=== PATIENT | female | born 1985 | race Caucasian/White ===

== ENCOUNTER → 2016-12-07 | Outpatient (CLI) | payer OTHER ==
--- NOTE | 2016-12-07 16:03 | REP ---
MRI BRAIN WITHOUT AND WITH CONTRAST: HISTORY: Right ear pain. CONTRAST: ProHance 12 mL. Scattered punctate areas of increased signal intensity on T2 weighted images are present in the subcortical white matter. There is no intraparenchymal hemorrhage, infarct, mass, or midline shift. There is no abnormal enhancement. The ventricular system is normal in appearance. There is no extra cerebral collection. There is no cerebellopontine angle mass. The inner structures are normal in appearance. Minimal mucosal thickening is present in the right mastoid air cells. The visualized sinuses are clear. IMPRESSION: There are scattered punctate area of increased signal intensity in the subcortical white matter. This is a nonspecific finding and can be condition such as migraine, collagen vascular disease, Lyme disease, vasculitis, sarcoid, B12 deficiency and atypical demyelinating disease. Signed by Dexter Gardner MD 12/07/2016 04:07 P
== END ==
LOC: M RAD 13:57
PROVIDERS: ATTEND Nurse Practitioner Family
DX: G51.0 Bell's palsy (principal)

== ENCOUNTER → 2017-02-04 | Outpatient (REF) | payer OTHER ==
[2017-02-04 14:24] LABS: FOLATE > 24.0 NG/ML (>5.4); VITAMIN B12 LEVEL 424 PG/ML (247-911)
[2017-02-04 14:25] LABS: ALBUMIN 4.4 GM/DL (3.2-5.2); ALBUMIN/GLOBULIN RATIO 1.29 (1.00-1.93); ALKALINE PHOSPHATASE 77 U/L (45-117); ALT/SGPT 16 U/L (12-78); ANION GAP 7 MEQ/L (8-16); AST/SGOT 11 U/L (15-37); BILIRUBIN,TOTAL 0.6 MG/DL (0.2-1.0); BLOOD UREA NITROGEN 12 MG/DL (7-18); CALCIUM LEVEL 9.3 MG/DL (8.5-10.1); CARBON DIOXIDE LEVEL 27 MEQ/L (21-32); CHLORIDE LEVEL 105 MEQ/L (98-107); CREATININE FOR GFR 0.65 MG/DL (0.55-1.02); GLOMERULAR FILTRATION RATE > 60.0 (>60); GLUCOSE, FASTING 78 MG/DL (70-105); POTASSIUM SERUM 4.2 MEQ/L (3.5-5.1); SODIUM LEVEL 139 MEQ/L (136-145); TOTAL PROTEIN 7.8 GM/DL (6.4-8.2)
[2017-02-04 14:44] LABS: BASO % 0.4 % (0.0-1.0); EOS # 0.2 K/mm3 (0.0-0.50); LARGE UNSTAINED CELL # 0.1 K/mm3 (0.0-0.4); LARGE UNSTAINED CELL % 1.8 % (0.0-4.0); LYMPH # 2.4 K/mm3 (1.5-4.5); LYMPH % 30.2 % (24.0-44.0); MEAN CORPUSCULAR HEMOGLOBIN 27.9 pg (27.0-33.0); MEAN CORPUSCULAR HGB CONC 32.1 g/dl (32.0-36.5); MEAN CORPUSCULAR VOLUME 87.1 fl (80.0-96.0); MONO # 0.5 K/mm3 (0.0-0.8); MONO % 6.3 % (0.0-5.0); NEUTROPHILS # 4.4 K/mm3 (1.8-7.7); NEUTROPHILS % 59.2 % (36.0-66.0); PLATELET COUNT, AUTOMATED 281 k/mm3 (150-450); RED CELL DISTRIBUTION WIDTH 12.9 % (11.5-14.5); WHITE BLOOD COUNT 7.5 K/mm3 (4.0-10.0)
[2017-02-04 15:34] LABS: ERYTHROCYTE SEDIMENTATION RATE 4 mm/hr (0-20)
[2017-02-07 14:13] LABS: VITAMIN E LEVEL 11.9 mg/L (5.3-16.8)
[2017-02-09 00:06] LABS: Lyme Disease IgG/IgM Antibodie <0.91 ISR (0.00-0.90); Lyme Disease IgM Ab Quantitati <0.80 index (0.00-0.79)
== END ==
LOC: M LABNEURO 10:20
PROVIDERS: ATTEND Psychiatry & Neurology Neurology
DX: G51.0 Bell's palsy (principal); Z11.8 Encounter for screening for other infectious and parasitic diseases; Z13.29 Encounter for screening for other suspected endocrine disorder

== ENCOUNTER → 2017-02-17 | Outpatient (CLI) | payer OTHER ==
--- NOTE | 2017-02-17 13:34 | REP ---
ULTRASOUND LEFT BREAST: CLINICAL HISTORY: Palpable abnormality left breast 3 o'clock and retroareolar region. Ultrasound of these regions of the left breast demonstrate dense fibroglandular tissue. No discrete cystic or solid nodule is seen. IMPRESSION: ACR 2 benign ultrasound left breast. No cystic or solid mass at the site of the reported palpable abnormalities left breast 3 o'clock in retroareolar region. Clinical correlation and followup recommended. A negative ultrasound should not deter biopsy if there is a clinically suspicious palpable mass present. Signed by Camilo Elizalde MD 02/18/2017 04:43 P
== END ==
LOC: M RAD 11:43
PROVIDERS: ATTEND Family Medicine
DX: N63 Unspecified lump in breast (principal)

== ENCOUNTER → 2017-09-27 | Outpatient (CLI) | payer OTHER ==
--- NOTE | 2017-09-27 13:19 | REP ---
Left breast ultrasound: 09/27/2017. Clinical history: 31-year-old female with lateral left breast pain. Comparison: Diagnostic digital left mammogram 09/27/2017. Findings. Sonographic evaluation of the outer half of the left breast from the noon position down to 6 o'clock where she reports pain in the outer half of that breast. There is dense echogenic heterogeneous breast tissue without discrete mass, cyst, dilated duct or architectural distortion. No skin thickening or edema suggested on any of these images. Impression: 1. BIRADS ACR category 1 negative left breast ultrasound. No evidence of malignancy. 2. Heterogeneous dense echogenic tissue without discrete mass, cyst, architectural distortion or other acute finding. Please see mammogram report this date for final assessment and recommendation. Signed by Andres Kerns MD 09/28/2017 07:21 P
--- NOTE | 2017-09-27 13:32 | REP ---
Diagnostic digital left mammogram: 09/27/2017. Comparison: Left breast ultrasound 09/27/2017. Clinical history: The patient reports breast pain lateral aspect left breast. Findings: The breast parenchyma show heterogeneously dense fibroglandular elements throughout in a fairly symmetric pattern. Standard two-view mammography and a true MLO view were performed. Scattered lymph nodes are seen in the axilla. There are no dominant masses, areas of architectural distortion, skin thickening, clustered microcalcification or other acute abnormality. Right breast ultrasound identified no sonographically definable cyst, solid mass, architectural distortion or other acute finding. No skin thickening. Impression: 1. BI-RADS/ACR category 2 mammogram. Benign finding(s). Routine annual screening mammography (for women over age 40). No evidence of malignancy. A few benign fat replaced axillary nodes are seen but no discrete mammographic or sonographic abnormality in the outer half of the left breast where she reports some breast pain. 2. Recommend followup bilateral mammogram at age 40 or sooner if clinically warranted. This negative report should not deter further evaluation of a dominant or suspicious physical finding. This mammogram was interpreted with the aid of an FDA-approved computer-aided detection system. A. Negative x-ray reports should not delay biopsy if a dominant or clinically suspicious mass is present. B. Four to eight percent of cancers are not identified by x-ray. C. Adenosis and dense breasts may obscure an underlying neoplasm. The patient states she had a clinical breast exam in 08/2017. The patient letter being requested is M1 dense. Signed by Andres Kerns MD 09/28/2017 07:46 P
== END ==
LOC: M RAD 09:58
PROVIDERS: ATTEND Family Medicine
DX: Z12.31 Encounter for screening mammogram for malignant neoplasm of breast (principal)

== ENCOUNTER → 2018-05-26 | Outpatient (REF) | payer OTHER ==
[2018-05-26 22:13] LABS: CHLAMYDIA DNA AMPLIFICATION NEGATIVE (NEGATIVE); GC DNA AMPLIFICATION NEGATIVE (NEGATIVE)
== END ==
LOC: M SFHCLERA 14:04
DX: R30.0 Dysuria (principal)
CPT/HCPCS: 87086

== ENCOUNTER → 2018-05-26 | Outpatient (CLI) | payer OTHER | LOC: M LRY 15:05 | DX: R30.0 Dysuria (principal) | CPT/HCPCS: 74021; 87086 ==

== ENCOUNTER → 2018-10-31 | Outpatient (CLI) | payer OTHER ==
--- NOTE | 2018-10-31 14:36 | REP ---
Digital diagnostic bilateral mammography with CAD, 3D mammography, and focused right breast sonography: HISTORY: Preop for reduction. Right breast mass times 2 months. Comparison mammography September 27, 2017, unilateral left breast study. MAMMOGRAPHIC FINDINGS: A skin marker is affixed to the skin at the site of the palpable abnormality. Routine views of the right breast are augmented by magnified focal spot compression CC, MLO and true ML views. Fairly dense heterogeneous breast tissue is seen in a pattern which may inhibit the sensitivity of mammography. No dominant density or asymmetry is seen at the site of the palpable lump in the right breast. No mass, spiculation or microcalcification is seen on either side. No suspicious mammographic abnormality. There has been some involution in the left breast. SONOGRAPHIC FINDINGS: The right breast is scanned in the upper outer quadrant 9-o'clock position to 12-o'clock position. Heterogeneous fibroglandular background echotexture is seen. No cyst, mass, acoustic shadowing or architectural distortion is visible. IMPRESSION: BI-RADS/ACR category 1 mammogram. Negative. Routine annual screening mammography (for women over age 40). BIRADS category 1 negative bilateral breast imaging findings. This negative report should not dissuade one from biopsy of a palpable lump depending on its clinical characteristics. Clinical follow-up is advised. This mammogram was interpreted with the aid of an FDA-approved computer-aided detection system. The patient states that she/he has not had a clinical breast exam in over a year. This patient's estimated Tyrer-Cuzick lifetime risk assessment for the breast cancer is 14.0 %. Patient letter M 1 Electronically Signed by Lakhwinder Garcia MD 10/31/2018 07:29 P
== END ==
LOC: M RAD 11:16
PROVIDERS: ATTEND Family Medicine
DX: N62 Hypertrophy of breast (principal)

== ENCOUNTER → 2019-10-28 | Outpatient (REF) | payer OTHER | LOC: M SFHCLERA 13:34 | PROVIDERS: ATTEND Physician Assistant | DX: R50.9 Fever, unspecified (principal) ==

== ENCOUNTER → 2019-11-07 | Outpatient (CLI) | payer OTHER ==
--- NOTE | 2019-11-07 13:05 | REP ---
Chest x-ray: Two views. History: Cough recent flu diagnosis. . Comparison study: May 26, 2018 . Findings: The lungs are well inflated and free of infiltrate. The pleural angles are sharp. The heart size is normal. Pulmonary vasculature is not increased. No significant bony abnormality is seen. Impression: Negative chest x-ray. Electronically Signed by Lakhwinder Garcia MD 11/07/2019 12:56 P
== END ==
LOC: M LRY 12:43
PROVIDERS: ATTEND Nurse Practitioner Family
DX: R09.89 Other specified symptoms and signs involving the circulatory and respiratory systems (principal)
CPT/HCPCS: 71046; G0463

== ENCOUNTER → 2020-04-22 | Outpatient (REF) | payer OTHER | LOC: M SFHCLERA 11:20 | PROVIDERS: ATTEND Nurse Practitioner Family | DX: R10.30 Lower abdominal pain, unspecified (principal) | CPT/HCPCS: 81002; 81025; 87086; G0463 ==

== ENCOUNTER → 2020-05-02 | Outpatient (CLI) | payer OTHER ==
--- NOTE | 2020-05-02 14:13 | REP ---
BILATERAL MAMMOGRAM WITH 3D TOMOSYNTHESIS, BILATERAL DIAGNOSTIC MAMMOGRAM AND ULTRASOUND: No family history of breast cancer. [facility] lifetime risk of breast cancer 14.1%. Comparison mammogram 10/31/2018 and 09/27/2017. Since the exam of 11/10/2018, the patient has had bilateral breast reduction surgery. There is moderately dense fibroglandular tissue bilaterally. No mass or architectural distortion is seen. No clustered microcalcifications are seen. There is no mass seen at the site of the palpable lump lateral to the right nipple and in the lower outer aspect of the left breast. Real-time sonographic evaluation of the bilateral breasts performed. At the site of the palpable lump lateral to the right nipple and in the left lower outer quadrant, no sonographic abnormality is seen, with no cystic or solid nodule identified. IMPRESSION: BIRADS 1: BI-RADS/ACR category 1 mammogram. Negative Mammogram. ACR 1 negative. No mass or clustered microcalcifications. No mammographic or sonographic evidence of a mass at the site of the reported palpable abnormality lateral to the right nipple and in the lower outer quadrant of the left breast. Clinical correlation and followup recommended. This mammogram was interpreted with the aid of an FDA-approved computer-aided detection system. A. Negative x-ray reports should not delay biopsy if a dominant or clinically suspicious mass is present. B. Four to eight percent of cancers are not identified by x-ray. C. Adenosis and dense breasts may obscure an underlying neoplasm. The patient states she/he had a clinical breast exam in March 2020. The patient letter being requested is M2. Bibi: Chante
== END ==
LOC: M WHC 10:00
PROVIDERS: ATTEND Nurse Practitioner Primary Care
DX: N63.10 Unspecified lump in the right breast, unspecified quadrant (principal)
CPT/HCPCS: 76642; 77066; G0279